=== PATIENT | female | born 1960 | race Caucasian/White ===

== ENCOUNTER 2017-04-30 04:36 | Emergency (ER) | payer BC ==
[~2017-04-30] VITALS: Ht 152.4 cm; Wt 45.0 kg
[2017-04-30 04:37] VITALS: BP 144/84; PULSE 100; RESP 16; TEMP 98.9; O2SAT 100
[2017-04-30] MEDS ORDERED: SODIUM CHLOR 0.9% 1000 ML INJ 1,000 ML IV ONE (05:00)
[2017-04-30] MEDS ORDERED: PANTOPRAZOLE SODIUM 40 MG VIAL IV PUSH ONE (05:00)
[2017-04-30 05:35] LABS: ALT (GPT) 18 U/L (10-53); ANION GAP 8 MEQ/L (5-15); AST (GOT) 14 U/L (15-37); BICARBONATE 28.3 MEQ/L (21.0-32.0); BLOOD UREA NITROGEN 16 MG/DL (7-18); CHLORIDE 99 MEQ/L (98-107); GLOMERULAR FILTRATION RATE 89 ML/MIN (>89); POTASSIUM 3.6 MEQ/L (3.5-5.1); SODIUM (NA) 135 MEQ/L (136-145)
[2017-04-30 05:37] LABS: ALKALINE PHOSPHATASE 89 U/L (45-117); TOTAL BILIRUBIN ADULT 0.6 MG/DL (0.2-1.0)
[2017-04-30 05:41] LABS: AUTOMATED NEUTROPHIL # 3.9 TH/MM3 (1.8-7.7); BASOPHIL % 0.7 % (0.0-2.0); EOSINOPHIL # 0.1 TH/MM3 (0-0.4); EOSINOPHIL % 1.8 % (0.0-4.0); HEMATOCRIT 42.1 % (35.0-46.0); HEMO FLAGS DIFF FINAL; LYMPH % 26.7 % (9.0-44.0); LYMPHOCYTE # 1.7 TH/MM3 (1.0-4.8); MEAN CELL VOLUME 87.2 FL (80.0-100.0); MEAN CORPUSCULAR HGB CONC 34.5 % (32.0-36.0); MONO % 8.1 % (0.0-8.0); NEUT % 62.7 % (16.0-70.0); PLATELET COUNT 296 TH/MM3 (150-450); RED BLOOD COUNT 4.83 MIL/MM3 (4.00-5.30); RED CELL DISTRIBUTION WIDTH 12.5 % (11.6-17.2); WHITE BLOOD COUNT 6.2 TH/MM3 (4.0-11.0)
[2017-04-30] MEDS ORDERED: ALUMINUM/MAGNESIUM/SIMETH 30 ML CUP PO ONE (05:45)
[2017-04-30] MEDS ORDERED: LIDOCAINE VISCOUS 2% SOLN 15 ML UDC SWISH-SWAL ONE (05:45)
--- NOTE | 2017-04-30 06:04 | PD ---
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 Sx conitnue her in ER . Has not seen another MD for this Illness [facility] Past Medical History GERD: Yes LMP: 2011 Menopausal: Yes : 0 Past Surgical History Other Surgery: Yes (CONE BIOPSY) Social History Alcohol Use: Yes (DAILY) Tobacco Use: No Substance Use: No Allergies-Medications (Allergen,Severity, Reaction): Coded Allergies: No Known Allergies (Unverified , 04/30/17) Reported Meds & Prescriptions Reported Meds & Active Scripts Active Pepcid (Famotidine) 20 Mg Tab 20 Mg PO BID Lidocaine Viscous Liq 2 % Liqd 5 Ml SWISH-SWAL QID PRN Review of Systems Except as stated in HPI: all other systems reviewed are Neg Gastrointestinal: Positive: Abdominal Pain Physical Exam Narrative SKIN: Warm and dry. HEAD: Atraumatic. Normocephalic. EYES: Pupils equal and round. No scleral icterus. No injection or drainage. ENT: No nasal bleeding or discharge. Mucous membranes pink and moist. NECK: Trachea midline. No JVD. CARDIOVASCULAR: Regular rate and rhythm. RESPIRATORY: No accessory muscle use. Clear to auscultation. Breath sounds equal bilaterally. GASTROINTESTINAL: Abdomen epigastric tenderness just under the xiphoid process soft, , nondistended. Hepatic and splenic margins not palpable. MUSCULOSKELETAL: Extremities without clubbing, cyanosis, or edema. No obvious deformities. NEUROLOGICAL: Awake and alert. No obvious cranial nerve deficits. Motor grossly within normal limits. Five out of 5 muscle strength in the arms and legs. Normal speech. PSYCHIATRIC: Appropriate mood and affect; insight and judgment normal. GENERAL non toxic and in No apparent distress Data Data Last Documented VS Vital Signs Date Time Temp Pulse Resp B/P (MAP) Pulse Ox O2 Delivery O2 Flow Rate FiO2 04/30/17 06:12 04/30/17 04:37 98.9 100 16 100 Room Air Orders Orders Pantoprazole Inj (Protonix Inj) (04/30/17 05:00) Sodium Chlor 0.9% 1000 Ml Inj (Ns 1000 M (04/30/17 05:00) Complete Blood Count With Diff (04/30/17 05:00) Comprehensive Metabolic Panel (04/30/17 05:00) Lipase (04/30/17 05:00) Lidocaine 2% Viscous (Xylocaine 2% Visco (04/30/17 05:45) Al-Mag Hy-Si 40-40-4 Mg/Ml Liq (Mag-Al P (04/30/17 05:45) Ed Discharge Order (04/30/17 06:13) Labs Laboratory Tests Test 04/30/17 04:50 White Blood Count 6.2 TH/MM3 Red Blood Count 4.83 MIL/MM3 Hemoglobin 14.5 GM/DL Hematocrit 42.1 % Mean Corpuscular Volume 87.2 FL Mean Corpuscular Hemoglobin 30.0 PG Mean Corpuscular Hemoglobin Concent 34.5 % Red Cell Distribution Width 12.5 % Platelet Count 296 TH/MM3 Mean Platelet Volume 7.3 FL Neutrophils (%) (Auto) 62.7 % Lymphocytes (%) (Auto) 26.7 % Monocytes (%) (Auto) 8.1 % Eosinophils (%) (Auto) 1.8 % Basophils (%) (Auto) 0.7 % Neutrophils # (Auto) 3.9 TH/MM3 Lymphocytes # (Auto) 1.7 TH/MM3 Monocytes # (Auto) 0.5 TH/MM3 Eosinophils # (Auto) 0.1 TH/MM3 Basophils # (Auto) 0.0 TH/MM3 CBC Comment DIFF FINAL Differential Comment Blood Urea Nitrogen 16 MG/DL Creatinine 0.68 MG/DL Random Glucose 95 MG/DL Total Protein 8.3 GM/DL Albumin 4.8 GM/DL Calcium Level 9.7 MG/DL Alkaline Phosphatase 89 U/L Aspartate Amino Transf (AST/SGOT) 14 U/L Alanine Aminotransferase (ALT/SGPT) 18 U/L Total Bilirubin 0.6 MG/DL Sodium Level 135 MEQ/L Potassium Level 3.6 MEQ/L Chloride Level 99 MEQ/L Carbon Dioxide Level 28.3 MEQ/L Anion Gap 8 MEQ/L Estimat Glomerular Filtration Rate 89 ML/MIN Lipase 171 U/L MDM Medical Decision Making Medical Screen Exam Complete: Yes Emergency Medical Condition: Yes Differential Diagnosis gerd vs viral gastritis vs stress induced gastritis vs food poisoning , Narrative Course protonix and Maalox and Lido po cure her pain completely and patient is ready for d./c with rx for pepcid and lido maalox follow up as outpt Diagnosis Primary Impression: Gastritis Patient Instructions: Gastritis (ED), General Instructions Scripts Famotidine (Pepcid) 20 Mg Tab 20 MG PO BID, #20 TAB 0 Refills Prov: Jaime Hughes MD 04/30/17 Lidocaine Viscous Liq (Lidocaine Viscous Liq) 2 % Liqd 5 ML SWISH-SWAL QID Y for PAIN, #1 BOTTLE 0 Refills Prov: Jaime Hughes MD 04/30/17 Disposition: 01 DISCHARGE HOME Condition: Good Jaime Hughes MD Apr 30, 2017 06:04
[2017-04-30] MEDS ORDERED: FAMO1TAB37 PO (06:06)
[2017-04-30] MEDS ORDERED: LIDO1SOL8 SWISH-SWAL (06:06)
== END 2017-04-30 06:16 | disposition home or self-care (01) ==
LOC: NEPE 04:36
DX: K29.00 Acute gastritis without bleeding (principal); Z87.19 Personal history of other diseases of the digestive system
CPT/HCPCS: 80053; 83690; 85025; 96361; 96374; 99284; C9113; J7030